=== PATIENT | female | born 1955 ===

== ENCOUNTER 2018-02-28 21:07 | Emergency (ER) | payer MEDICARE, OTHER ==
[~2018-02-28] VITALS: Ht 147.3 cm; Wt 61.2 kg
[~2018-02-28 21:07] MED LIST: ALBU90OI INH; AZIT250 PO; CLAR500 PO; HYDACE10 PO; HYDGUAL120 PO; IBUP800 PO; PENVK500 PO; TRIAOI IH
[2018-02-28 21:38] LABS: BASOPHILS ABSOLUTE AUTO 0.03 K/mm3 (0.00-0.23); BASOPHILS PERCENT AUTO 0 % (0-2); EOSINOPHILS ABSOLUTE AUTO 0.01 K/mm3 (0.00-0.68); EOSINOPHILS PERCENT AUTO 0 % (0-6); Hematocrit 40.5 % (33.0-51.0); Hemoglobin 12.4 g/dL (11.5-16.0); IMMATURE GRAN ABSOLUTE AUTO 0.03 K/mm3 (0.00-0.10); IMMATURE GRAN PERCENT AUTO 0 % (0-1); LYMPHOCYTES ABSOLUTE AUTO 0.59 K/mm3 (0.84-5.20); LYMPHOCYTES PERCENT AUTO 5 % (21-46); MONOCYTES ABSOLUTE AUTO 0.64 K/mm3 (0.16-1.47); MONOCYTES PERCENT AUTO 5 % (4-13); Mean Corpuscular HGB 21.7 pg (26.0-34.0); Mean Corpuscular HGB Conc 30.6 g/dL (31.5-36.5); Mean Corpuscular Volume 71 fL (80-100); Mean Platelet Volume 9.5 fL (9.1-12.4); NEUTROPHILS ABSOLUTE AUTO 11.79 K/mm3 (1.96-9.15); NEUTROPHILS PERCENT AUTO 90 % (41-73); Platelet Count 689 K/mm3 (150-400); RDW Coefficient Variation 18.8 % (11.7-14.2); RDW Standard Deviation 44.6 fL (35.1-46.3); Red Blood Cell Count 5.72 M/mm3 (3.80-5.20); White Blood Cell Count 13.09 K/mm3 (4.00-11.30)
[2018-02-28 21:58] LABS: Alanine Aminotransfer (ALT/SGP 40 U/L (12-78); Albumin, Blood 2.9 g/dL (3.4-5.0); Albumin/Globulin Ratio 0.6 (0.8-1.8); Alk Phos 425 U/L (50-136); Anion Gap 12 mmol/L (6-16); Aspartate Aminotrans (AST/SGOT 81 U/L (12-37); Bilirubin, Total 0.7 mg/dL (0.1-1.0); Blood Urea Nitrogen 19 mg/dL (8-24); Bun/Creatinine Ratio 33.3 (12.0-20.0); CO2, Blood 24 mmol/L (21-32); Calcium, Blood 8.8 mg/dL (8.5-10.1); Chloride, Blood 98 mmol/L (98-108); Creatinine, Blood 0.57 mg/dL (0.40-1.00); Globulin, Blood 4.8 g/dL (2.2-4.0); Glomerular Filtration Rate >60 (60-); Glucose, Blood 100 mg/dL (70-99); Potassium, Blood 3.8 mmol/L (3.5-5.5); Sodium, Blood 134 mmol/L (136-145); Total Protein, Blood 7.7 g/dL (6.4-8.2); Troponin I <0.015 ng/mL (0.000-0.040)
[2018-02-28 21:59] LABS: International Normalized Ratio 1.03; Prothrombin Time Results 10.6 Sec (9.7-11.5)
[2018-02-28 22:23] LABS: Source, Urine Clean Catch
[2018-02-28 23:40] LABS: Bilirubin, Urine Neg (Neg); Blood, Urine 1+ (Neg); Glucose Qualitative, Urine Neg (Neg); Ketones, Urine 1+ (Neg); Leukocyte Esterase, Urine 2+ (Neg); Nitrite, Urine Neg (Neg); Protein, Urine 2+ (Neg); Specific Gravity, Urine 1.025 (1.003-1.022); Urobilinogen, Urine 1+ (Normal)
[2018-02-28 23:44] LABS: Appearance, Urine Cloudy (Clear); Color, Urine Yellow (P-Yellow)
[2018-02-28 23:45] LABS: Amorphous Heavy (0-Heavy); Bacteria Rare /hpf; Red Blood Cells, Urine 0-2 /hpf (0-2); White Blood Cells, Urine 0-2 /hpf (0-5)
[2018-02-28 23:46] LABS: Squamous Epithelial Cells Few /hpf (Few)
[2018-03-01 00:49] LABS: International Normalized Ratio 1.05; Prothrombin Time Results 10.8 Sec (9.7-11.5)
== END 2018-03-01 01:24 | disposition short-term general hospital (02) ==
LOC: ER 21:07
PROVIDERS: Emergency Medicine
DX: A41.9 Sepsis, unspecified organism (principal); K63.1 Perforation of intestine (nontraumatic); R91.8 Other nonspecific abnormal finding of lung field; R16.0 Hepatomegaly, not elsewhere classified; I25.2 Old myocardial infarction; F17.210 Nicotine dependence, cigarettes, uncomplicated; Z88.5 Allergy status to narcotic agent; Z79.2 Long term (current) use of antibiotics; Z79.1 Long term (current) use of non-steroidal anti-inflammatories (NSAID); Z79.891 Long term (current) use of opiate analgesic
CPT/HCPCS: 36415; 71275; 74175; 80053; 81001; 83605; 83880; 84484; 85025; 85610; 85730; 86850; 86900; 86901; 87086; 93005; 93010; 96361; 96365; 96375; 96376; 99285-25; J1170; J2543; J3010; J7030; Q9967

== ENCOUNTER 2018-03-09 13:20 | Emergency (ER) | payer MEDICARE, OTHER ==
[~2018-03-09] VITALS: Ht 152.4 cm; Wt 72.6 kg
[2018-03-09 14:21] LABS: Alanine Aminotransfer (ALT/SGP 161 U/L (12-78); Albumin, Blood 2.2 g/dL (3.4-5.0); Albumin/Globulin Ratio 0.5 (0.8-1.8); Alk Phos 283 U/L (50-136); Anion Gap 11 mmol/L (6-16); Aspartate Aminotrans (AST/SGOT 76 U/L (12-37); BASOPHILS ABSOLUTE AUTO 0.03 K/mm3 (0.00-0.23); BASOPHILS PERCENT AUTO 0 % (0-2); Bilirubin, Total 2.9 mg/dL (0.1-1.0); Blood Urea Nitrogen 8 mg/dL (8-24); Bun/Creatinine Ratio 14.9 (12.0-20.0); CO2, Blood 29 mmol/L (21-32); Calcium, Blood 8.5 mg/dL (8.5-10.1); Chloride, Blood 95 mmol/L (98-108); Creatinine, Blood 0.54 mg/dL (0.40-1.00); EOSINOPHILS ABSOLUTE AUTO 0.26 K/mm3 (0.00-0.68); EOSINOPHILS PERCENT AUTO 2 % (0-6); Globulin, Blood 4.4 g/dL (2.2-4.0); Glomerular Filtration Rate >60 (60-); Glucose, Blood 92 mg/dL (70-99); Hematocrit 29.9 % (33.0-51.0); Hemoglobin 9.2 g/dL (11.5-16.0); IMMATURE GRAN ABSOLUTE AUTO 0.07 K/mm3 (0.00-0.10); IMMATURE GRAN PERCENT AUTO 1 % (0-1); LYMPHOCYTES ABSOLUTE AUTO 0.67 K/mm3 (0.84-5.20); LYMPHOCYTES PERCENT AUTO 5 % (21-46); MONOCYTES ABSOLUTE AUTO 0.69 K/mm3 (0.16-1.47); MONOCYTES PERCENT AUTO 5 % (4-13); Mean Corpuscular HGB 21.5 pg (26.0-34.0); Mean Corpuscular HGB Conc 30.8 g/dL (31.5-36.5); Mean Corpuscular Volume 70 fL (80-100); Mean Platelet Volume 10.6 fL (9.1-12.4); NEUTROPHILS ABSOLUTE AUTO 11.33 K/mm3 (1.96-9.15); NEUTROPHILS PERCENT AUTO 87 % (41-73); NRBC ABSOLUTE 0.29 K/mm3 (0.00-0.02); NRBC Auto 2.2 /100 WBC (0.0-0.2); Platelet Count 904 K/mm3 (150-400); Potassium, Blood 3.9 mmol/L (3.5-5.5); RDW Coefficient Variation 22.5 % (11.7-14.2); RDW Standard Deviation 54.2 fL (35.1-46.3); Red Blood Cell Count 4.27 M/mm3 (3.80-5.20); Sodium, Blood 135 mmol/L (136-145); Total Protein, Blood 6.6 g/dL (6.4-8.2); White Blood Cell Count 13.05 K/mm3 (4.00-11.30)
[2018-03-09] MEDS ORDERED: Milk Of Ma400 MG/5 M PO (14:56)
== END 2018-03-09 19:11 | disposition short-term general hospital (02) ==
LOC: ER 13:20
PROVIDERS: Physician Assistant
DX: K56.609 Unspecified intestinal obstruction, unspecified as to partial versus complete obstruction (principal); C34.91 Malignant neoplasm of unspecified part of right bronchus or lung; Z88.5 Allergy status to narcotic agent; Z88.8 Allergy status to other drugs, medicaments and biological substances; Z79.899 Other long term (current) drug therapy; F17.210 Nicotine dependence, cigarettes, uncomplicated
CPT/HCPCS: 36415; 71046; 74177; 80053; 85025; 93005; 93010; 96361; 96374; 96375; 96376; 99285-25; J1200; J2765; J3010; J7120; Q9967

== ENCOUNTER 2018-03-13 11:00 | Inpatient (IN) | payer MEDICARE, OTHER ==
[~2018-03-13] VITALS: Ht 149.9 cm; Wt 69.8 kg
[~2018-03-13 11:00] MED LIST changes: +Milk Of Ma400 MG/5 M PO
[2018-03-13 11:35] LABS: Hematocrit 32.6 % (33.0-51.0); Hemoglobin 9.7 g/dL (11.5-16.0); Mean Corpuscular HGB 21.3 pg (26.0-34.0); Mean Corpuscular HGB Conc 29.8 g/dL (31.5-36.5); Mean Corpuscular Volume 72 fL (80-100); Mean Platelet Volume 10.5 fL (9.1-12.4); NRBC ABSOLUTE 0.16 K/mm3 (0.00-0.02); NRBC Auto 1.4 /100 WBC (0.0-0.2); Platelet Count 973 K/mm3 (150-400); RDW Coefficient Variation 23.6 % (11.7-14.2); RDW Standard Deviation 57.7 fL (35.1-46.3); Red Blood Cell Count 4.55 M/mm3 (3.80-5.20); White Blood Cell Count 11.65 K/mm3 (4.00-11.30)
[2018-03-13 11:37] LABS: Source, Urine Clean Catch
[2018-03-13 11:47] LABS: Blood, Urine 2+ (Neg); Glucose Qualitative, Urine Neg (Neg); Ketones, Urine 1+ (Neg); Leukocyte Esterase, Urine 1+ (Neg); Nitrite, Urine Pos (Neg); Protein, Urine 2+ (Neg); Urobilinogen, Urine 2+ (Normal)
[2018-03-13 11:54] LABS: Appearance, Urine Hazy (Clear); Bilirubin, Urine 3+ (Neg); Color, Urine Amber (P-Yellow)
[2018-03-13 11:57] LABS: Bacteria Mod /hpf; Squamous Epithelial Cells Many /hpf (Few)
[2018-03-13 11:58] LABS: Albumin, Blood 1.9 g/dL (3.4-5.0); Albumin/Globulin Ratio 0.4 (0.8-1.8); Bilirubin, Total 3.8 mg/dL (0.1-1.0); Bun/Creatinine Ratio 12.4 (12.0-20.0); Calcium, Blood 8.3 mg/dL (8.5-10.1); Creatinine, Blood 1.85 mg/dL (0.40-1.00); Globulin, Blood 4.4 g/dL (2.2-4.0); Total Protein, Blood 6.3 g/dL (6.4-8.2)
[2018-03-13 11:58] LABS: Amorphous Light (0-Heavy)
[2018-03-13 12:07] LABS: BAND PERCENT MAN 28 % (0-8); BASOPHILS PERCENT MAN 0 % (0-2); EOSINOPHILS PERCENT MAN 0 % (0-6); LYMPHOCYTES ABSOLUTE MAN 1.16 K/mm3 (0.84-5.20); LYMPHOCYTES PERCENT MAN 10 % (21-46); METAMYELOCYTE ABSOLUTE MAN 1.39 K/mm3 (0.00-0.00); METAMYELOCYTE PERCENT MAN 12 % (0-0); MONOCYTES ABSOLUTE MAN 0.93 K/mm3 (0.16-1.47); MONOCYTES PERCENT MAN 8 % (4-13); NEUTROPHILS ABSOLUTE MAN 8.03 K/mm3 (1.96-9.15); PROMYELOCYTE ABSOLUTE MAN 0.11 K/mm3 (0.00-0.00); PROMYELOCYTE PERCENT MAN 1 % (0-0); SEG NEUTROPHILS PERCENT MAN 41 % (41-73); TOTAL CELLS COUNTED 100
[2018-03-13] MEDS ORDERED: Nortriptyline H50 MG PO (14:51)
[2018-03-13] MEDS ORDERED: Norco 10-325 T1 EACH PO (14:51)
[2018-03-13 16:50] LABS: Hematocrit 30.4 % (33.0-51.0); Hemoglobin 9.1 g/dL (11.5-16.0); Mean Corpuscular HGB 21.4 pg (26.0-34.0); Mean Corpuscular HGB Conc 29.9 g/dL (31.5-36.5); Mean Corpuscular Volume 71 fL (80-100); Mean Platelet Volume 10.8 fL (9.1-12.4); NRBC ABSOLUTE 0.24 K/mm3 (0.00-0.02); NRBC Auto 1.9 /100 WBC (0.0-0.2); Platelet Count 882 K/mm3 (150-400); RDW Coefficient Variation 23.5 % (11.7-14.2); RDW Standard Deviation 56.3 fL (35.1-46.3); Red Blood Cell Count 4.26 M/mm3 (3.80-5.20); White Blood Cell Count 12.84 K/mm3 (4.00-11.30)
[2018-03-13 17:02] LABS: International Normalized Ratio 1.96; Prothrombin Time Results 19.4 Sec (9.7-11.5)
[2018-03-13 17:25] LABS: BAND PERCENT MAN 46 % (0-8); BASOPHILS ABSOLUTE MAN 0.25 K/mm3 (0.00-0.23); BASOPHILS PERCENT MAN 2 % (0-2); EOSINOPHILS PERCENT MAN 0 % (0-6); LYMPHOCYTES ABSOLUTE MAN 0.64 K/mm3 (0.84-5.20); LYMPHOCYTES PERCENT MAN 5 % (21-46); METAMYELOCYTE ABSOLUTE MAN 0.64 K/mm3 (0.00-0.00); METAMYELOCYTE PERCENT MAN 5 % (0-0); MONOCYTES ABSOLUTE MAN 0.77 K/mm3 (0.16-1.47); MONOCYTES PERCENT MAN 6 % (4-13); MYELOCYTE ABSOLUTE MAN 0.38 K/mm3 (0.00-0.00); MYELOCYTE PERCENT MAN 3 % (0-0); NEUTROPHILS ABSOLUTE MAN 10.14 K/mm3 (1.96-9.15); SEG NEUTROPHILS PERCENT MAN 33 % (41-73); TOTAL CELLS COUNTED 100
--- NOTE | 2018-03-13 18:00 | NUR ---
INITIAL ASSESSMENT PATIENT ADMITTED TO UNIT AT 1745. PATIENT TRANSFERRED SELF, SBA, TO ICU BED FROM ER [facility]. PATIENT WEAK BUT STEADY ON FEET. PATIENT ALERT AND ORIENTED X 4, HOWEVER IS POOR HISTORIAN AND STORY OF MEDICAL HISTORY SEEMS SCATTERED. PATIENT STATES HER BACK L MOLAR IS INFECTED. THAT SHE HAS N/T IN BLES SINCE AFTER A BACK INJURY. PATIENT PLACED ON AIRVO AT 45 L AND 56% FIO2, SATTING WELL. PATIENT LUNGS ARE CLEAR THROUGHOUT, DIMINISHED IN LOWER LOBES. PATIENT STATES SHE HAS HAD A MOIST, NONPRODUCTIVE COUGH. PATIENT IN ST, HR IN THE 120S. BP HYPOTENSIVE, SBP IN THE 70S. NONPITTING EDEMA NOTED IN BLES. PULSES 1+ IN STRENGTH. SCDS PLACED. ABDOMEN MILDLY DISTENDED, FIRM, TENDER TO PALPATION. SURGICAL LACERATION MIDLINE AND SMALL LACERATION TO R SIDE OF ABDOMEN. PATIENT STATES THAT SHE IS PAINFUL IN HER R ABDOMEN. PATIENT HAS GJ TUBE- CLAMPED. PATIENT STATES SHE HAS NOT BEEN FEEDING HERSELF THROUGH BECAUSE HER STOMACH GETS DISTENDED SO MOSTLY BEEN EATING THROUGH MOUTH, BUT THAT SHE HASN'T BEEN DOING MUCH OF THAT EITHER DUE TO LACK OF APPETITE. PATIENT STATES SHE HAS NOT HAD A BM IN 4- 5 DAYS. PATIENT STATES THAT SHE HAS BEEN VOIDING LITTLE. SKIN PALE, WARM, DRY. PATIENT ORIENTED TO ROOM AND CALL SYSTEM. BED LOW, CALL LIGHT IN REACH. WILL CONTINUE TO MONITOR PATIENT FREQUENTLY UNTIL REPORT GIVEN TO ONCOMING COLD TYPE COMPOSING MACHINE OPERATOR NURSE SHORTLY.
--- NOTE | 2018-03-13 18:58 | NUR ---
DR. FANG AND DR. ONEILL IN TO SEE PATIENT.
[2018-03-13 21:23] LABS: Albumin, Blood 1.4 g/dL (3.4-5.0); Albumin/Globulin Ratio 0.4 (0.8-1.8); Bilirubin, Total 2.9 mg/dL (0.1-1.0); Bun/Creatinine Ratio 13.4 (12.0-20.0); Calcium, Blood 7.2 mg/dL (8.5-10.1); Creatinine, Blood 1.86 mg/dL (0.40-1.00); Globulin, Blood 3.4 g/dL (2.2-4.0); Potassium, Blood 5.2 mmol/L (3.5-5.5); Total Protein, Blood 4.8 g/dL (6.4-8.2)
[2018-03-13 21:31] LABS: Hematocrit 24.9 % (33.0-51.0); Hemoglobin 7.7 g/dL (11.5-16.0); Mean Corpuscular HGB 21.9 pg (26.0-34.0); Mean Corpuscular HGB Conc 30.9 g/dL (31.5-36.5); Mean Corpuscular Volume 71 fL (80-100); Mean Platelet Volume 10.7 fL (9.1-12.4); NRBC ABSOLUTE 0.25 K/mm3 (0.00-0.02); Platelet Count 818 K/mm3 (150-400); RDW Coefficient Variation 23.2 % (11.7-14.2); RDW Standard Deviation 56.1 fL (35.1-46.3); Red Blood Cell Count 3.52 M/mm3 (3.80-5.20); White Blood Cell Count 12.32 K/mm3 (4.00-11.30)
--- NOTE | 2018-03-13 21:51 | NUR ---
PT WAS HYPOTENSIVE AND A DIFFICULT LAB DRAW/IV START. DR. ONEILL WAS HERE AND PLACED CENTRAL LINE. PLACEMENT CONFIRMED BY XRAY WHILE DR. ONEILL AT BEDSIDE AND GAVE VERBAL OK TO USE LINE. LEVOPHED STARTED TO KEEP MAP 65. MCNEIL PLACED PER VERBAL ORDER BY DR. ONEILL FOR STRICT I&O. URINE IS TEA COLORED. UA WITH CULTURE SENT. PT WAS A/O X4 BEFORE PROCEDURE. NOW IS DROWSY BUT ORIENTED AFTER RECEIVING VERSED AND FENTANYL FOR LINE PLACEMENT.
[2018-03-13 21:57] LABS: BAND PERCENT MAN 25 % (0-8); BASOPHILS PERCENT MAN 0 % (0-2); EOSINOPHILS ABSOLUTE MAN 0.24 K/mm3 (0.00-0.68); EOSINOPHILS PERCENT MAN 2 % (0-6); LYMPHOCYTES ABSOLUTE MAN 1.23 K/mm3 (0.84-5.20); LYMPHOCYTES PERCENT MAN 10 % (21-46); METAMYELOCYTE ABSOLUTE MAN 0.36 K/mm3 (0.00-0.00); METAMYELOCYTE PERCENT MAN 3 % (0-0); MONOCYTES ABSOLUTE MAN 1.23 K/mm3 (0.16-1.47); MONOCYTES PERCENT MAN 10 % (4-13); MYELOCYTE ABSOLUTE MAN 0.36 K/mm3 (0.00-0.00); MYELOCYTE PERCENT MAN 3 % (0-0); NEUTROPHILS ABSOLUTE MAN 8.87 K/mm3 (1.96-9.15); SEG NEUTROPHILS PERCENT MAN 47 % (41-73); TOTAL CELLS COUNTED 100
[2018-03-14 03:57] LABS: Hematocrit 26.9 % (33.0-51.0); Hemoglobin 8.3 g/dL (11.5-16.0); Mean Corpuscular HGB 21.6 pg (26.0-34.0); Mean Corpuscular HGB Conc 30.9 g/dL (31.5-36.5); Mean Corpuscular Volume 70 fL (80-100); Mean Platelet Volume 10.3 fL (9.1-12.4); NRBC ABSOLUTE 0.36 K/mm3 (0.00-0.02); NRBC Auto 2.1 /100 WBC (0.0-0.2); Platelet Count 868 K/mm3 (150-400); RDW Coefficient Variation 23.3 % (11.7-14.2); RDW Standard Deviation 55.7 fL (35.1-46.3); Red Blood Cell Count 3.85 M/mm3 (3.80-5.20); White Blood Cell Count 16.82 K/mm3 (4.00-11.30)
[2018-03-14 04:14] LABS: Bun/Creatinine Ratio 16.7 (12.0-20.0); Calcium, Blood 7.3 mg/dL (8.5-10.1); Creatinine, Blood 1.8 mg/dL (0.40-1.00); Potassium, Blood 5.6 mmol/L (3.5-5.5)
[2018-03-14 04:22] LABS: BAND PERCENT MAN 35 % (0-8); BASOPHILS PERCENT MAN 0 % (0-2); EOSINOPHILS PERCENT MAN 0 % (0-6); LYMPHOCYTES ABSOLUTE MAN 0.33 K/mm3 (0.84-5.20); LYMPHOCYTES PERCENT MAN 2 % (21-46); METAMYELOCYTE PERCENT MAN 3 % (0-0); MONOCYTES ABSOLUTE MAN 0.84 K/mm3 (0.16-1.47); MONOCYTES PERCENT MAN 5 % (4-13); MYELOCYTE ABSOLUTE MAN 0.16 K/mm3 (0.00-0.00); MYELOCYTE PERCENT MAN 1 % (0-0); NEUTROPHILS ABSOLUTE MAN 14.96 K/mm3 (1.96-9.15); SEG NEUTROPHILS PERCENT MAN 54 % (41-73); TOTAL CELLS COUNTED 100
--- NOTE | 2018-03-14 06:20 | NUR ---
SUMMARY PT RESTING IN BED. A/O X4. HAD SOME ABD PAIN THIS AM THAT DILAUDID WAS GIVEN FOR AND RELIEVED. HAD CENTRAL LINE PLACED BY DR. ONEILL. TITRATING LEVOPHED TO KEEP MAP 65. LACTIC ACID IMPROVED AFTER IVF. PT IS ON AIRVO. SPO2 90-92, DESATS WITH EXERTION. PLACED MCNEIL FOR FOR STRICT I&O. URINE IS TEA COLORED. CALL LIGHT IN REACH AND PT USES APPOPRIATELY.
--- NOTE | 2018-03-14 07:45 | NUR ---
INITIAL ASSESSMENT PATIENT RESTING QUIETLY UPON ENTERING ROOM. PATIENT HAS NO COMPLAINTS OF PAIN. PATIENT ALERT AND ORIENTED X 4. PATIENT HAS TEMP OF 99.0 DEGREES FAHRENHEIT. PATIENT SATTING WELL ON AIRVO 45 L AND 56% FIO2. LUNGS CLEAR THROUGHOUT, LOWER LOBES DIMINISHED. PATIENT HAS MOIST, NONPRODUCTIVE, WEAK COUGH. PATIENT IN SR TO ST, HR 90S TO LOW 100S. BP STABLE ON LEVOPHED. PATIENT HAS NONPITTING EDEMA IN BLES. SCDS IN PLACE. ABDOMEN FIRM, TENDER, MILDLY DISTENDED, WITH HYPOACTIVE BS. GJ TUBE TO ABDOMEN. PATIENT REMAINS CONSTIPATED. MCNEIL DRAINING SMALL AMOUNT OF TEA COLORED URINE WITH SEDIMENT NOTED. SURGICAL LACERATION AND INCISION TO ABDOMEN NOTED, OTHERWISE SKIN C/D/I. NS INFUSING AT 125 MLS/ HOUR, LEVOPHED AT 17 MCG/ MINUTE. BED LOW, CALL LIGHT IN REACH. WILL CONTINUE TO MONITOR PATIENT FREQUENTLY THROUGHOUT SHIFT.
--- NOTE | 2018-03-14 10:31 | NUR ---
PATIENT BACK FROM CT. DRAIN PLACED IN LEFT LOWER FLANK AND ONE IN RIGHT LOWER QUADRANT, BOTH DRAINING GOOD AMOUNTS OF BROWN, FOUL SMELLING FLUID.
--- NOTE | 2018-03-14 10:54 | NUR ---
DR. ONEILL IN ROOM TO SEE PATIENT. UPDATED ON PATIENT CONDITION.
--- NOTE | 2018-03-14 11:41 | NUR ---
DR. LOZANO IN ROOM TO SEE PATIENT.
[2018-03-14 12:11] LABS: Vancomycin, Random 10.2 ug/mL
--- NOTE | 2018-03-14 12:31 | NUR ---
PATIENT SLEEPING SOUNDLY IN BED. PATIENT HAS BEEN FAIRLY SEDATED SINCE GIVEN PRN FENTANYL DURING DRAIN PLACEMENT PROCEDURE. DRAINS IN LEFT LOWER FLANK AND RIGHT LOWER ABDOMEN DRAINING BROWN, CLOUDY, FOUL SMELLING FLUID. PATIENT REMAINS SATTING WELL ON SAME AIRVO SETTINGS. PATIENT IN SR, HR IN THE 90S. VASOPRESSIN ADDED TO THE LEVOPHED THAT IS INFUSING AT 20 MCG/ MINUTE FOR HYPOTENSION. NO OTHER ACUTE CHANGES TO NOTE ON AT THIS TIME. WILL CONTINUE TO MONITOR.
--- NOTE | 2018-03-14 15:42 | NUR ---
PATIENT NAPPING ON AND OFF IN BED. NO COMPLAINTS. PATIENT HAS TEMP OF 99.8 DEGREES FAHRENHEIT. PATIENT REMAINS SATTING WELL ON SAME AIRVO SETTINGS. PATIENT IN SR, HR IN THE 90S. BP STABLE ON LEVOPHED AT 17 MCG/ MINUTE AND VASOPRESSIN AT 0.04 UNITS/ MINUTE. NO ACUTE CHANGES TO NOTE ON. WILL CONTINUE TO MONITOR.
--- NOTE | 2018-03-14 18:24 | NUR ---
JEVITY 1.2 STARTED AT 20 MLS/ HOUR WITH 30 ML H20 FLUSH Q4H.
--- NOTE | 2018-03-14 18:35 | NUR ---
SHIFT SUMMARY PATIENT HAD DRAINS PLACED THIS MORNING TO R LOWER ABDOMEN AND L LOWER FLANK. 1600 CC OF BROWN/ CLOUDY/ FOUL SMELLING FLUID OUT FROM DRAINS. PATIENT SLEPT OFF AND ON AFTER COMING BACK FROM PROCEDURE. PATIENT GIVEN PRN PAIN MEDICATIONS DURING PROCEDURE TO HELP WITH SEVERE PAIN- PATIENT SEDATED- PATIENT RESUMES BEING LETHARGIC AND A LITTLE CONFUSED. PATIENT HAD TMAX OF 99.8 DEGREES FAHRENHEIT. PATIENT REMAINS ON AIRVO AT 45 L AND 56% FIO2. PATIENT LUNGS REMAIN CLEAR, DIMINISHED IN LOWER LOBES. PATIENT HAS WEAK, OCCASIONALLY PRODUCTIVE COUGH- THICK, YELLOW SPUTUM NOTED. PATIENT REMAINED IN SR TO ST, HR 90S TO LOW 100S. LEVOPHED INFUSING AT 17 MCG/ MINUTE AND VASOPRESSIN AT 0.04 UNITS/ HOUR TO KEEP MAPS 65 AND GREATER. ABDOMEN REMAINS TENDER, FIRM, WITH HYPOACTIVE BS. SUPPOSITORY GIVEN TODAY FOR COMPLAINTS OF CONSTIPATION. JEVITY 1.2 STARTED AT 20 MLS/ HOUR WITH 30 ML WATER FLUSH Q4H. GOAL IS 45 MLS/ HOUR. MCNEIL REMAINS DRAINING TEA COLORED URINE WITH SEDIMENT NOTED. NS TKO. DAUGHTER IN TO CHECK ON PATIENT T/O SHIFT. PATIENT HAS NO COMPLAINTS AT THIS TIME. BED LOW, CALL LIGHT IN REACH. WILL CONTINUE MONITORING PATIENT UNTIL REPORT GIVEN TO ONCOMING SALES SUPPORT ASSOCIATE NURSE SHORTLY.
--- NOTE | 2018-03-14 21:57 | NUR ---
PT WAS HAVING A DIFFICULT TIME GETTING COMFORTABLE. WAS SCOOTING AROUND IN BED AND DESATS WITH ANY EXERTION. HAD TO TURN AIRVO UP TO 77% TO HELP GET RECOVERED. PT FINALLY ADMITTED TO BEING IN PAIN. GAVE DILAUDID, CHANGED BEDDING, AND REPOSITIONED AGAIN. AFTER GETTING DILAUDID PT IS SLEEPING AND ABLE TO TITRATED AIRVO BACK TO 56%.
[2018-03-15 04:06] LABS: Hematocrit 23.8 % (33.0-51.0); Hemoglobin 7.5 g/dL (11.5-16.0); Mean Corpuscular HGB 21.8 pg (26.0-34.0); Mean Corpuscular HGB Conc 31.5 g/dL (31.5-36.5); Mean Corpuscular Volume 69 fL (80-100); Mean Platelet Volume 10.6 fL (9.1-12.4); NRBC Auto 1.7 /100 WBC (0.0-0.2); Platelet Count 741 K/mm3 (150-400); RDW Coefficient Variation 23.1 % (11.7-14.2); RDW Standard Deviation 54.3 fL (35.1-46.3); Red Blood Cell Count 3.44 M/mm3 (3.80-5.20); White Blood Cell Count 23.37 K/mm3 (4.00-11.30)
[2018-03-15 04:24] LABS: Albumin, Blood 1.4 g/dL (3.4-5.0); Albumin/Globulin Ratio 0.4 (0.8-1.8); Bilirubin, Total 3.2 mg/dL (0.1-1.0); Bun/Creatinine Ratio 28.3 (12.0-20.0); Calcium, Blood 7.1 mg/dL (8.5-10.1); Creatinine, Blood 1.2 mg/dL (0.40-1.00); Globulin, Blood 3.6 g/dL (2.2-4.0); Magnesium, Blood 2.1 mg/dL (1.6-2.4); Phosphorus, Blood 3.4 mg/dL (2.5-4.9)
[2018-03-15 05:29] LABS: BAND PERCENT MAN 15 % (0-8); BASOPHILS PERCENT MAN 0 % (0-2); EOSINOPHILS PERCENT MAN 0 % (0-6); LYMPHOCYTES ABSOLUTE MAN 0.93 K/mm3 (0.84-5.20); LYMPHOCYTES PERCENT MAN 4 % (21-46); MONOCYTES PERCENT MAN 6 % (4-13); NEUTROPHILS ABSOLUTE MAN 21.03 K/mm3 (1.96-9.15); SEG NEUTROPHILS PERCENT MAN 75 % (41-73); TOTAL CELLS COUNTED 100
--- NOTE | 2018-03-15 06:23 | NUR ---
SUMMARY PT RESTING IN BED. GAVE 2 DOSES OF DILAUDID FOR ABD PAIN. DILAUDID WORKS WELL FOR PT. PT DESATS WITH ANY EXERTION INTO THE 80'S. WHEN AWAKE SHE FIDGETS IN BED AND IS CONSTANTLY WANTING TO GET OOB. EDUCATED THAT IT IS NOT SAFE AT THE MOMENT DUE TO HYPOTENSION AND DESATTING. DRAINS STILL PUTTING OUT LIGHT BROWN CLOUDY LIQUID WITH FOUL ODOR. TOLERATING TF WELL. WAS INCREASED TO 30ML/HR AT 0200. STARTED PT ON FLUTTER VALVE LAST NIGHT DUE TO WEAK COUGH AND PT FEELS LIKE THERE IS SPUTUM THAT NEEDS TO COME UP. ALSO DID SOME PERCUSSION WITH THE BED.
--- NOTE | 2018-03-15 08:00 | NUR ---
INITIAL ASSESSMENT PATIENT VERY CONFUSED AND ANXIOUS THIS MORNING. PATIENT CONTINUES TO CALL "HELP" EVEN WHEN STAFF IN ROOM HELPING. PATIENT RESTLESS AND CONTINUES TO TRY AND CRAWL OUT OF BED. PATIENT IS BEING GIVEN PRN PAIN MEDICATIONS TO HELP WITH COMPLAINT OF ABDOMINAL PAIN. PATIENT SKIN APPEARS MORE JAUNDICED THAN YESTERDAY. SCLERA ALSO APPEAR SLIGHTLY JAUNDICED. ANASARCA NOTED. PATIENT HAS TEMP OF 100.0 DEGREES FAHRENHEIT. PATIENT ON AIRVO, 45 L, 40 TO 55% FIO2. PATIENT HAS WEAK, NONPRODUCTIVE COUGH. LUNGS CLEAR IN UPPER LOBES, DIMINISHED IN LOWER LOBES. PATIENT IN SR, HR 70S TO 80S. BP STABLE ON LEVOPHED AT 17 MCG/ MINUTE AND VASOPRESSIN AT 0.04 UNITS/ MINUTE. ABDOMEN MODERATELY DISTENDED, FIRM, TENDER, WITH HYPOACTIVE BS. TF INFUSING AT 30 MLS/ HOUR WITH 30 ML WATER FLUSH Q4H. RESIDUAL OF 0. MCNEIL DRAINING GARRY COLORED URINE WITH SEDIMENT NOTED. PATIENT HAS A DRAIN IN LEFT LOWER FLANK AND DRAIN IN R LOWER ABDOMEN- BOTH DRAINING BROWN/ CLOUDY/ FOUL SMELLING FLUID. PATIENT HAS MIDLINE INCISION AND SMALL INCISION TO R ABDOMEN FROM RECENT SURGERY- STERI STRIPS IN PLACE. NS TKO. BED LOW, CALL LIGHT IN REACH. WILL CONTINUE TO MONITOR PATIENT FREQUENTLY THROUGHOUT SHIFT.
--- NOTE | 2018-03-15 08:19 | NUR ---
DR. LOZANO AND DR. ONEILL IN TO SEE PATIENT THIS AM.
[2018-03-15 08:44] LABS: PCO2 Arterial 45.3 mmHg (35-45); PO2 Arterial 68.2 mmHg (80-100); pH Blood Arterial 7.32 (7.35-7.45)
--- NOTE | 2018-03-15 09:12 | NUR ---
TF PLACED ON HOLD PER DR. ONEILL.
[2018-03-15 09:38] LABS: Ferritin, Serum 189 ng/mL (8-252); Total Iron Binding Capacity 189 ug/dL (250-450)
[2018-03-15 10:06] LABS: Iron Serum <5 ug/dL (50-170); Percent Saturation Unable to Calculate % (15.0-50.0)
--- NOTE | 2018-03-15 10:25 | NUR ---
CALLED PER INSTRUCTION BY DR. ONEILL TO INFORM OF INCREASED AIR UNDER DIAPHRAGM ON AM CHEST XRAY, INCREASED WBC COUNT, AND CONCERN FOR WORSENING PERFORATION. DR. FANG STATED THAT ONLY OTHER OPTION IS EXPLORATORY SURGERY IN ABDOMEN BUT DOES NOT SUGGEST IT BIG CONCERN OF MAKING THINGS WORSE SINCE PATIENT HAD EXTENSIVE SURGERY RECENTLY IN SAME PLACE. DR. ONEILL NOTIFIED OF DISCUSSION AND BOTH AGREE THAT PATIENT'S CONDITION IS TERMINAL. WILL SHARE NEWS WITH PATIENT AND HER DAUGHTER.
--- NOTE | 2018-03-15 10:47 | NUR ---
SPOKE TO PATIENT'S DAUGHTER ABOUT DISCUSSION WITH DR. FANG AND WITH DR. ONEILL. DAUGHTER UNDERSTANDS THAT HER MOTHERS CONDITION IS TERMINAL. DAUGHTER WOULD LIKE TO TALK TO PALLIATIVE CARE NURSE ABOUT SWITCHING PATIENT OVER TO COMFORT CARE. ASHLEY BABCOCK, PALLIATIVE CARE RN, CALLED AND WILL BE DOWN TO SPEAK TO PATIENT AND HER DAUGHTER.
--- NOTE | 2018-03-15 11:39 | NUR ---
PATIENT APPEARS COMFORTABLE AT THIS TIME AFTER PRN ATIVAN GIVEN. PATIENT'S DAUGHTER IS IN ROOM WITH HER. WILL CONTINUE TO MONITOR FREQUENTLY.
--- NOTE | 2018-03-15 11:45 | NUR ---
Initial Pal Care visit. Called by pt's RN with update on current status and fariha's wish to speak with someone re: options for care, comfort care. EMR reviewed and additional update on prognosis obtained from RN and Dr. VIsit made to pt's room, where fariha, Taylor had been by pt's side all am. Pt assessed. She is supine in bed, verbal and eyes open. She appears impaired in cognition. She is restless, reports pain in abdomen and back. Nonverbal indicators of restlessness, grimacing noted and verbal report of pain in abdomen received from pt. She is currently on airvo/high flow O2 and able to wave arms and move legs in bed. She is repeatedly asking for help to get out of bed. She had been given haldol recently per RN for agitation. Reviewed code status and options with pt's daughter. Pt states she knows where she is but cannot actually tell me. She is confused and fariha reports this is how she has been since before her admission, including during her stay at [facility] recently. Taylor says she has a brother who lives out of state and there are no other family members/decision makers available. She states her mom is . Her mom had not completed an advanced directive or POLST in the past per fariha. Taylor states her mom was clear that she would not want to live dependent on feeding tubes and/or ventilatory support. Reviewed daughters understanding of her mom's prognosis per Dr visits today and options for care including comfort care. Taylor would like her mom on comfort care now as she feels her mom is suffering and there is no hope of a return to health or normal function. Taylor is appropriately tearful and anxious also regarding her mother's decline. Discussed above with pt's RN and Die Caster present. Comfort care orders obtained and entered with RN's input also. Time spent explaining to daughter what to expect with change to comfort care and discussing changes that would be made with respect to more monitoring for comfort but no cardiac monitoring, etc and also that pt may be moved out of ICU. Comfort care cart ordered. I will remain available for support & s/s management as needed.
--- NOTE | 2018-03-15 15:54 | NUR ---
PATIENT SLEEPING SOUNDLY IN BED. NO SIGNS OF PAIN OR DISCOMFORT NOTED. DAUGHTER WENT HOME FOR A LITTLE BIT. WILL CONTINUE TO MONITOR.
--- NOTE | 2018-03-15 16:05 | NUR ---
PATIENT HAS BEEN RESTING SOUNDLY ON ATIVAN AND FENTANYL. PATIENT WILL BE TRANSFERRING TO ROOM 312 ON MEDICAL FLOOR. REPORT HAS BEEN GIVEN TO ASSUMING NURSE. DAUGHTER, RAY, HAS BEEN UPDATED THAT PATIENT WILL BE MOVING TO MEDICAL FLOOR, ROOM 312.
--- NOTE | 2018-03-15 17:20 | NUR ---
PATIENT TRANSFERRED TO MEDICAL FLOOR. CHARGE NURSE, PRIMARY NURSE, SECONDARY NURSE AND ADMINISTRATIVE OFFICER ASSUMED PATIENT.
--- NOTE | 2018-03-15 18:05 | NUR ---
SHIFT SUMMARY PT XFER'D FROM ICU THIS SHIFT 1700, NO ACUTE CHANGES SINCE ASSUMING CARE, DAUGHTER AT BEDSIDE, WILL CONT TO MONTIOR UNTIL REPORT GIVEN TO CANDIDO ESPINO.
--- NOTE | 2018-03-15 18:29 | NUR ---
PAL CARE COMFORT CARE VISIT. Second visit to pt this berenice. Pt has been moved to rm 312 from ICU. Met with daughter and helped her find new room. She had gone home to care for child and will be here for another hour tonight. Pt appears much less agitated and comfortable than on my first assessment this am. Warren also reports much improvement in pt's anxiety, pain and agitation noted this am. Warren very relieved that her mom is receiving comfort care and support at this time. Pal care to follow to assist with s/s management and support.
--- NOTE | 2018-03-16 06:08 | NUR ---
SHIFT SUMMARY PT IS 62 Y/O COMFORT CARE PATIENT. SHE SLEPT THROUGH THE NIGHT, AND ROUSED ENOUGH TO ANSWER TO HER NAME ONCE DURING THE NIGHT. OTHERWISE, SHE WAS DIFFICULT TO WAKE. SHE WAS MEDICATED X 3 FOR PAIN BEFORE SHE WAS TURNED, BUT OTHERWISE APPEARED COMFORTABLE. NO OTHER ACUTE CHANGES IN PT CONDITION NOTED. WILL CONTINUE TO MONITOR AND TREAT PER EMAR UNTIL HAND OFF TO DAY SHIFT.
--- NOTE | 2018-03-16 08:05 | NUR ---
PT RESTING COMFORTABLY AT THIS TIME WITH NO S/SX OF DISTRESS OR DISCOMFORT, APPEARS TO BE SLEEPING COMFORTABLY. SOME APNEIC PAUSES OBSERVED, RR 14. EXTREMETIES WARM, ALTHOUGH PALE. MCNEIL DRAINING SMAL AMOUNT OF GARRY URINE.
--- NOTE | 2018-03-16 08:47 | NUR ---
0837 WENT INTO PT'S ROOM AND OBSERVED THAT SHE WAS NO LONGER BREATHING. AUSCULATED CHEST, NO HEART BEAT HEARD. CN, DR. ANTONIO AND DAUGHTER. KEN, NOTIFIED. FAMILY HAS NOT YEST DECIDED ON HOME. TIME OF 0837.
--- NOTE | 2018-03-16 16:07 | NUR ---
1606 PT DISCHARGED WITH PERSON'S HOME VIA [facility].
== END 2018-03-16 08:37 | DRG 871 ==
LOC: ER 11:00 → ICUW 15:52 → MEDS 03-15 16:54
PROVIDERS: Family Medicine; Internal Medicine Pulmonary Disease; Pharmacist; Physician Assistant; ADMIT Internal Medicine
PROC: 02HV33Z Insertion of Infusion Device into Superior Vena Cava, Percutaneous Approach (ICD-10-PCS; principal; 2018-03-13)
PROC: 0D9W30Z Drainage of Peritoneum with Drainage Device, Percutaneous Approach (ICD-10-PCS; 2018-03-14)
PROC: 3E033XZ Introduction of Vasopressor into Peripheral Vein, Percutaneous Approach (ICD-10-PCS; 2018-03-14)
DX: A40.1 Sepsis due to streptococcus, group B (principal); R65.21 Severe sepsis with septic shock; G92 Toxic encephalopathy; J96.01 Acute respiratory failure with hypoxia; N17.9 Acute kidney failure, unspecified; E87.1 Hypo-osmolality and hyponatremia; C22.0 Liver cell carcinoma; C78.00 Secondary malignant neoplasm of unspecified lung; C78.89 Secondary malignant neoplasm of other digestive organs; K91.89 Other postprocedural complications and disorders of digestive system; K94.23 Gastrostomy malfunction; Z51.5 Encounter for palliative care; Z90.12 Acquired absence of left breast and nipple; Z90.3 Acquired absence of stomach [part of]; Z90.81 Acquired absence of spleen; F17.210 Nicotine dependence, cigarettes, uncomplicated; D47.3 Essential (hemorrhagic) thrombocythemia; I95.9 Hypotension, unspecified; E86.0 Dehydration; K66.8 Other specified disorders of peritoneum; J44.9 Chronic obstructive pulmonary disease, unspecified; E87.5 Hyperkalemia; E88.09 Other disorders of plasma-protein metabolism, not elsewhere classified
CPT/HCPCS: 36415; 36556; 36600; 49406; 51702; 71045; 74022; 74176; 80048; 80053; 80202; 81001; 82607; 82728; 82746; 82803; 83540; 83550; 83605; 83690; 83735; 84100; 84484; 85025; 85610; 85730; 86900; 86901; 87040; 87070; 87077; 87086; 87186; 87205; 93005; 93010; 96361; 96374; 96376; 99285-25; C1751; C9113; J1170; J1630; J1644; J2060; J2250; J2405; J2543; J3010; J3370; J7030; J7040; J7060; J7120